=== PATIENT | female | born 1945 | race Caucasian/White ===

== ENCOUNTER 2016-12-19 01:31 | Emergency (ER) | payer MEDICARE, BC ==
[2016-12-19] MEDS ORDERED: ONDANSETRON HCL INJ/PF 4 MG/2 ML SDV IV ONE (02:06)
[2016-12-19] MEDS ORDERED: MORPHINE SULFATE 10 MG/ML INJ IV ONE ×2 (02:06→05:12)
[2016-12-19] MEDS ORDERED: KETOROLAC TROMETHAMINE INJ/PF 30 MG/1 ML SDV IV ONE (02:06)
--- NOTE | 2016-12-19 02:07 | ER Document Report ---
ED GI/ - General Chief Complaint: Flank Pain Stated Complaint: POSSIBLE GALLSTONES/FLANK PAIN Time Seen by Provider: 12/19/16 01:58 Mode of Arrival: Ambulatory Information source: Patient - HPI Patient complains to provider of: Dysuria, Flank pain, Vomiting Onset: Yesterday Timing/Duration: Sudden Quality of pain: Sharp, Stabbing Severity at maximum: Severe Severity in ED: Severe Location: Right flank Associated symptoms: Nausea, Vomiting Exacerbated by: Denies Relieved by: Denies Similar symptoms previously: Yes Recently seen / treated by doctor: Yes Notes: 12/19/16 07:36 Patient is a 71-year-old female who presents to the emergency room complaining of sharp stabbing right-sided flank pain that started yesterday, intermittently improved after passing what appeared to be a 3 mm stone, then this evening she developed similar symptoms again, she reports pressure in her bladder, nausea, no vomiting currently, no blood in her urine, no history of kidney stones previously, patient is visiting the area, does not currently have a urologist to follow-up with, she is currently taking Flomax, hydrocodone as needed and Zofran as needed at home with intermittent symptom relief - Related Data Allergies/Adverse Reactions: clindamycin Allergy (Verified 12/19/16 01:36) acetaminophen [From Percocet] Adverse Reaction (Verified 12/19/16 07:02) Nausea oxycodone [From Percocet] Adverse Reaction (Verified 12/19/16 07:02) Nausea Home Medications: Current Home Medications Lisinopril/Hydrochlorothiazide [Lisinopril-Hctz 10-12.5 mg Tab] 1 tab PO DAILY 12/19/16 [History] Past Medical History - General Information source: Patient - Social History Smoking Status: Never Smoker Family History: Reviewed & Not Pertinent Renal/ Medical History: Denies: Hx Peritoneal Dialysis Review of Systems - Review of Systems Constitutional: No symptoms reported EENT: No symptoms reported Cardiovascular: No symptoms reported Respiratory: No symptoms reported Gastrointestinal: See HPI Genitourinary: See HPI Female Genitourinary: No symptoms reported Musculoskeletal: No symptoms reported Skin: No symptoms reported Hematologic/Lymphatic: No symptoms reported Neurological/Psychological: No symptoms reported -: Yes All other systems reviewed and negative Physical Exam - Vital signs Vitals: Temp Pulse Resp BP Pulse Ox 98.6 F 106 H 22 H 174/85 H 97 12/19/16 01:37 12/19/16 01:37 12/19/16 01:37 12/19/16 01:37 12/19/16 01:37 Interpretation: Hypertensive, Tachycardic, Tachypneic - General General appearance: Alert In distress: Mild - Appears in pain - HEENT Head: Normocephalic, Atraumatic Eyes: Normal Conjunctiva: Normal Extraocular movements intact: Yes Eyelashes: Normal Pupils: PERRL Pharynx: Normal Neck: Normal - Respiratory Respiratory status: No respiratory distress Chest status: Nontender Breath sounds: Normal Chest palpation: Normal - Cardiovascular Rhythm: Regular Heart sounds: Normal auscultation Murmur: No - Abdominal Inspection: Normal Distension: No distension Bowel sounds: Normal Tenderness: Nontender Organomegaly: No organomegaly - Back Back: Normal, Nontender - Extremities General upper extremity: Normal inspection, Nontender, Normal color, Normal ROM , Normal temperature General lower extremity: Normal inspection, Nontender, Normal color, Normal ROM , Normal temperature, Normal weight bearing. No: Daniela's sign - Neurological Neuro grossly intact: Yes Cognition: Normal Orientation: AAOx4 Kathy Coma Scale Eye Opening: Spontaneous [place] Coma Scale Verbal: Oriented [place] Coma Scale Motor: Obeys Commands Kathy Coma Scale Total: 15 Speech: Normal Motor strength normal: LUE, RUE, LLE, RLE Sensory: Normal - Psychological Associated symptoms: Normal affect, Normal mood - Skin Skin Temperature: Warm Skin Moisture: Dry Skin Color: Normal Course - Re-evaluation Re-evalutation: 12/19/16 07:35 Patient has been resting comfortably, reports feeling much better, lab and imaging findings discussed with patient at bedside which are consistent with 4 mm stone in the right UVJ, other incidental findings were discussed with patient as well, she was advised to continue current treatment regimen that was prescribed by [facility] ER physician 2 days ago, which includes hydrocodone, Zofran ODT as needed, and Flomax, patient was also given a prescription for oral morphine for breakthrough pain that is not controlled by the Vicodin, advised to return if symptoms worsen or any additional concerns, patient and spouse at bedside acknowledge understanding and agreement with this plan 12/19/16 07:38 I did obtain patient's medical records from [facility] for her recent visit, CT scan results did show a 5 mm stone in the right kidney, with a 3 mm stone in the UVJ, patient's labs showed mild leukocytosis with a white count in the 11 range, and a creatinine of 1.61, her labs today were slightly worsening, however her vital signs are stable, her pain was relatively easy control with IV fluids and medications, the stone in the right UVJ today is 4 mm and patient should be able to pass his stone without any surgical procedure or intervention , patient was provided with copy of all these records - Vital Signs Vital signs: Temp Pulse Resp BP Pulse Ox 98.6 F 106 H 25 H 149/68 H 96 12/19/16 01:37 12/19/16 01:37 12/19/16 05:40 12/19/16 05:40 12/19/16 05:40 - Laboratory Result Diagrams: 12/19/16 02:21 12/19/16 02:21 Laboratory results interpreted by me: 12/19/16 12/19/16 02:21 02:21 WBC 13.1 H RBC 3.51 L Hgb 10.5 L Hct 32.2 L Seg Neutrophils % 78.5 H Lymphocytes % 12.8 L Absolute Neutrophils 10.3 H Carbon Dioxide 20 L BUN 36 H Creatinine 1.93 H Est GFR ( Amer) 31 L Est GFR (Non-Af Amer) 25 L Glucose 206 H Direct Bilirubin 0.5 H - Diagnostic Test Radiology reviewed: Image reviewed, Reports reviewed Discharge - Discharge Clinical Impression: Kidney stone on right side Condition: Stable Disposition: HOME, SELF-CARE Instructions: Kidney Stone ([facility]) Additional Instructions: Follow up with your primary care provider in one to 2 days. Return to the emergency room immediately if symptoms worsen or any additional concerns. Prescriptions: Morphine Sulfate [Morphine 10 mg/5 ml Oral Soln Udcup] 5 mg PO Q6 #10 udc
[2016-12-19 02:30] LABS: ABSOLUTE BASOPHILS # (AUTO) 0.1 10^3/uL (0.0-0.2); ABSOLUTE EOSINOPHILS # (AUTO) 0.1 10^3/uL (0.0-0.6); ABSOLUTE LYMPHOCYTES (AUTO) 1.7 10^3/uL (0.5-4.7); ABSOLUTE NEUT (AUTO) 10.3 10^3/uL (1.7-8.2); BASOPHILS % (AUTO) 0.4 % (0-2); HEMATOCRIT 32.2 % (36.0-47.0); HEMOGLOBIN 10.5 g/dL (12.0-15.5); HGB HCT DIFFERENCE -0.7; LYMPHOCYTES % (AUTO) 12.8 % (13-45); MEAN CORPUSCULAR HEMOGLOBIN 29.9 pg (27.0-33.4); MEAN CORPUSCULAR HGB CONC 32.6 g/dL (32.0-36.0); MEAN CORPUSCULAR VOLUME 92 fl (80-97); MONOCYTES % (AUTO) 7.3 % (3-13); RED BLOOD COUNT 3.51 10^6/uL (3.72-5.28); RED CELL DISTRIBUTION WIDTH 12.5 % (11.5-14.0); SEGMENTED NEUTROPHILS % (AUTO) 78.5 % (42-78); WHITE BLOOD COUNT 13.1 10^3/uL (4.0-10.5)
[2016-12-19] MEDS: NORMAL SALINE 1000 ML 1,000 ML IV PRN ×2 (02:37→05:38)
--- NOTE | 2016-12-19 02:45 | RADIOLOGY REPORT (SQ) ---
EXAM DESCRIPTION: CT LTD RENAL STONE PROTOCOL ON COMPLETED DATE/TIME: 12/19/2016 2:29 am REASON FOR STUDY: flank pain COMPARISON: None. TECHNIQUE: CT scan of the abdomen and pelvis performed without intravenous or oral contrast. Images reviewed with lung, soft tissue, and bone windows. Reconstructed coronal and sagittal MPR images revi ewed. All images stored on PACS. All CT scanners at this facility use dose modulation, iterative reconstruction, and/or weight based d osing when appropriate to reduce radiation dose to as low as reasonably achievable (ALARA). [facility]: Dose Right [facility]: CareDose [facility]: Dose Right [facility]: Teradose 4D [facility]: [employer] RADIATION DOSE: Up-to-date CT equipment and radiation dose reduction techniques were employed. CTDIv ol: 15.1 mGy. DLP: 774 mGy-cm.mGy. LIMITATIONS: None. FINDINGS: LOWER CHEST: No significant findings. No nodules or infiltrates. NON-CONTRASTED LIVER, SPLEEN, ADRENALS: Evaluation limited by lack of IV contrast. No identified sign ificant masses. PANCREAS: No masses. No peripancreatic inflammatory changes. GALLBLADDER: Surgically absent. RIGHT KIDNEY AND URETER: Large 7 cm peripelvic cyst versus marked proximal hydronephrosis secondary t o UPJ obstruction. No significant calcifications. Hydronephrosis versus large peripelvic cyst. LEFT KIDNEY AND URETER: Well circumscribed low density mass(es) statistically most likely to be cyst( s). Assessment limited by lack of iv contrast. No significant calcifications. No hydronephrosis o r hydroureter. AORTA AND RETROPERITONEUM: No aneurysm. No retroperitoneal masses or adenopathy. BOWEL AND PERITONEAL CAVITY: No obvious masses or inflammatory changes. No free fluid. APPENDIX: Normal. PELVIS, BLADDER, AND ABDOMINAL WALL:No abnormal masses. No free fluid. Bladder normal. BONES: No significant findings. OTHER: No other significant finding. IMPRESSION: Large peripelvic cyst versus proximal hydronephrosis with UPJ obstruction of the right k idney. No calcifications. TECHNICAL DOCUMENTATION: JOB ID: [id number] Quality ID # [id number]: Final reports with documentation of one or more dose reduction techniques (e.g., Au tomated exposure control, adjustment of the mA and/or kV according to patient size, use of iterative reconstruction technique) 2010 [employer]- All Rights Reserved
[2016-12-19 03:02] LABS: ALANINE AMINOTRANSFERASE 32 U/L (9-52); ALBUMIN 4.2 g/dL (3.5-5.0); ALKALINE PHOSPHATASE 113 U/L (38-126); ANION GAP 12 (5-19); ASPARTATE AMINO TRANSFERASE 22 U/L (14-36); BILIRUBIN,DIRECT 0.5 mg/dL (0.0-0.4); BILIRUBIN,TOTAL 0.8 mg/dL (0.2-1.3); BLOOD UREA NITROGEN 36 mg/dL (7-20); CALCIUM 9.7 mg/dL (8.4-10.2); CARBON DIOXIDE 20 mmol/L (22-30); CHLORIDE 107 mmol/L (98-107); CREATININE RESULT 1.93 mg/dL (0.52-1.25); GLUCOSE 206 mg/dL (75-110); LIPASE 261.5 U/L (23-300); TOTAL PROTEIN 7.3 g/dL (6.3-8.2)
[2016-12-19 04:06] LABS: APPEARANCE,URINE CLEAR; BILIRUBIN,URINE NEGATIVE (NEGATIVE); GLUCOSE, URINE NEGATIVE (NEGATIVE); KETONES,URINE NEGATIVE (NEGATIVE); LEUKOCYTE ESTERASE,URINE NEGATIVE (NEGATIVE); NITRITE,URINE NEGATIVE (NEGATIVE); PROTEIN,URINE NEGATIVE (NEGATIVE); URINE SPECIFIC GRAVITY 1.015; UROBILINOGEN,URINE NEGATIVE mg/dL (<2.0)
[2016-12-19] MEDS ORDERED: NORMAL SALINE 1000 ML 1,000 ML IV PRN (05:12)
--- NOTE | 2016-12-19 07:22 | RADIOLOGY REPORT (SQ) ---
EXAM DESCRIPTION: CT ABD/PELVIS WITH IV ONLY COMPLETED DATE/TIME: 12/19/2016 7:11 am REASON FOR STUDY: right flank pain COMPARISON: CT without contrast TECHNIQUE: CT scan of the abdomen and pelvis performed using helical scanning technique with dynamic intravenous contrast injection. No oral contrast. Images reviewed with lung, soft tissue, and bone windows. Reconstructed coronal and sagittal MPR images reviewed. Delayed images for evaluation of the urinary system also acquired. All images stored on PACS. All CT scanners at this facility use dose modulation, iterative reconstruction, and/or weight based d osing when appropriate to reduce radiation dose to as low as reasonably achievable (ALARA). [facility]: Dose Right [facility]: CareDose [facility]: Dose Right [facility]: Teradose 4D [facility]: [employer] CONTRAST TYPE AND DOSE: contrast/concentration: Isovue 300.00 mg/ml; Total Contrast Delivered: 96.0 ml; Total Saline Delivered: 71.0 ml RENAL FUNCTION: Creatinine 1.9. Discussed with referring physician. RADIATION DOSE: Up-to-date CT equipment and radiation dose reduction techniques were employed. CTDIv ol: 16.9 - 19.4 mGy. DLP: 1730 mGy-cm.. LIMITATIONS: None. FINDINGS: LOWER CHEST: No significant findings. No nodules or infiltrates. LIVER: Normal size. No masses. No dilated ducts. SPLEEN: Normal size. No focal lesions. PANCREAS: No masses. No significant calcifications. No adjacent inflammation or peripancreatic fluid collections. Pancreatic duct not dilated. GALLBLADDER: Surgically absent. ADRENAL GLANDS: No significant masses or asymmetry. RIGHT KIDNEY AND URETER: No solid masses. 4 mm calculus in the distal right ureter. Large peripel jeramy cysts. Drherxnl-[id number] hydronephrosis. No significant hydroureter despite the distal uretera l calculus. LEFT KIDNEY AND URETER: No solid masses. No significant calcifications. No hydronephrosis or hydr oureter. AORTA AND VESSELS: No aneurysm. No dissection. Renal arteries, SMA, celiac without stenosis. RETROPERITONEUM: No retroperitoneal adenopathy, hemorrhage or masses. BOWEL AND PERITONEAL CAVITY: No masses or inflammatory changes. No free fluid or peritoneal masses. APPENDIX: Normal. PELVIS: No mass. No free fluid. Normal bladder. ABDOMINAL WALL: No masses. No hernias. BONES: No significant or acute findings. OTHER: No other significant finding. IMPRESSION: 4 mm calculus in the distal right ureter without significant hydroureter however there i s [id number] hydronephrosis. In addition there is a large peripelvic cyst measuring 5.6 cm. TECHNICAL DOCUMENTATION: JOB ID: [id number] Quality ID # [id number]: Final reports with documentation of one or more dose reduction techniques (e.g., Au tomated exposure control, adjustment of the mA and/or kV according to patient size, use of iterative reconstruction technique) 2010 [employer]- All Rights Reserved
[2016-12-19 08:06] VITALS: BP 125/66
== END 2016-12-19 08:20 | disposition home or self-care (01) ==
LOC: ER 01:31
DX: N20.0 Calculus of kidney (principal); R10.9 Unspecified abdominal pain; R11.10 Vomiting, unspecified; R30.0 Dysuria; Z88.3 Allergy status to other anti-infective agents; Z88.6 Allergy status to analgesic agent
CPT/HCPCS: 96376; 99284; 96361; 96374; 96375; 36415; 87086; 83690; 85025; 80053; 81001; 76380; 74177; J1885; J2270; J2405; J7030

== ENCOUNTER 2016-12-20 09:57 | Emergency (ER) | payer MEDICARE, BC ==
[2016-12-20] MEDS ORDERED: NORMAL SALINE 1000 ML 1,000 ML IV ONE (10:25)
[2016-12-20] MEDS ORDERED: MORPHINE SULFATE 10 MG/ML INJ IV ONE ×3 (10:25→16:33)
[2016-12-20] MEDS ORDERED: ONDANSETRON HCL INJ/PF 4 MG/2 ML SDV IV ONE ×2 (10:25→16:33)
--- NOTE | 2016-12-20 10:28 | ER Document Report ---
ED Medical Screen (RME) - General Chief Complaint: Flank Pain Stated Complaint: ABDOMINAL PAIN Time Seen by Provider: 12/20/16 10:16 Mode of Arrival: Wheelchair TRAVEL OUTSIDE OF THE [place] IN LAST 30 DAYS: No - HPI Patient complains to provider of: R flank pain Onset: Other - pt with R kidney stone states oral meds not working -- wants IV meds so she can travel to [place] today - Related Data Allergies/Adverse Reactions: caffeine [From Cafergot] Allergy (Verified 12/20/16 10:01) clindamycin Allergy (Verified 12/20/16 10:01) ergotamine [From [employer]] Allergy (Verified 12/20/16 10:01) oxycodone [From Percocet] Adverse Reaction (Verified 12/20/16 10:01) Nausea Past Medical History - Social History Chew tobacco use (# tins/day): No Frequency of alcohol use: None Drug Abuse: None - Past Medical History Cardiac Medical History: Reports: Hx Hypertension Endocrine Medical History: Reports: Hx Diabetes Mellitus Type 2 Renal/ Medical History: Reports: Hx Kidney Stones. Denies: Hx Peritoneal Dialysis Musculoskeltal Medical History: Reports Hx Arthritis Past Surgical History: Reports: Hx Cholecystectomy, Hx Hysterectomy, Hx Orthopedic Surgery - Bilateral knees, RLE, bunion, Hx Tonsillectomy, Hx Urinary Tract Surgery - Bladder sling - Immunizations Hx Diphtheria, Pertussis, Tetanus Vaccination: No Physical Exam - Vital signs Vitals: Temp Pulse Resp BP Pulse Ox 99.3 F 112 H 20 183/74 H 99 12/20/16 10:03 12/20/16 10:03 12/20/16 10:03 12/20/16 10:03 12/20/16 10:03 Course - Vital Signs Vital signs: Temp Pulse Resp BP Pulse Ox 99.3 F 112 H 20 183/74 H 99 12/20/16 10:03 12/20/16 10:03 12/20/16 10:03 12/20/16 10:03 12/20/16 10:03
[2016-12-20 11:29] LABS: APPEARANCE,URINE CLEAR; BILIRUBIN,URINE NEGATIVE (NEGATIVE); GLUCOSE, URINE NEGATIVE (NEGATIVE); KETONES,URINE NEGATIVE (NEGATIVE); LEUKOCYTE ESTERASE,URINE NEGATIVE (NEGATIVE); NITRITE,URINE NEGATIVE (NEGATIVE); PROTEIN,URINE NEGATIVE (NEGATIVE); URINE SPECIFIC GRAVITY 1.017; UROBILINOGEN,URINE NEGATIVE mg/dL (<2.0)
--- NOTE | 2016-12-20 11:33 | ER Document Report ---
ED GI/ - General Chief Complaint: Flank Pain Stated Complaint: ABDOMINAL PAIN Time Seen by Provider: 12/20/16 10:16 Mode of Arrival: Wheelchair Notes: Patient is here because of continuing pain in the right lower quadrant of the abdomen and in the right flank region. Patient started having this pain Tuesday and was seen at [facility] in [place] and had a CT scan and the patient was told she had two kidney stones. She says that she passed 1 of the stones on Tuesday morning and then came here to visit her family. Her pain was so intense that she came here Tuesday night and had a noncontrasted CT and a CT with IV contrast showing a 4 mm stone in the right ureter with severe right hydronephrosis, but no significant hydroureter. Patient was discharged on pain medications, but returned saying that the liquid morphine she was prescribed is not helping her pain. Patient says she is nauseated although she is not vomiting. Has not noted any fever. Has never had kidney stones before although she has had kidney infections. TRAVEL OUTSIDE OF THE [place] IN LAST 30 DAYS: No - Related Data Allergies/Adverse Reactions: caffeine [From Cafergot] Allergy (Verified 12/20/16 10:01) clindamycin Allergy (Verified 12/20/16 10:01) ergotamine [From Cafergot] Allergy (Verified 12/20/16 10:01) oxycodone [From Percocet] Adverse Reaction (Verified 12/20/16 10:01) Nausea Past Medical History - Social History Smoking Status: Never Smoker Chew tobacco use (# tins/day): No Frequency of alcohol use: None Drug Abuse: None Family History: Reviewed & Not Pertinent - Past Medical History Cardiac Medical History: Reports: Hx Hypertension Endocrine Medical History: Reports: Hx Diabetes Mellitus Type 2 Renal/ Medical History: Reports: Hx Kidney Stones Musculoskeltal Medical History: Reports Hx Arthritis Past Surgical History: Reports: Hx Cholecystectomy, Hx Hysterectomy, Hx Orthopedic Surgery - Bilateral knees, RLE, bunion, Hx Tonsillectomy, Hx Urinary Tract Surgery - Bladder sling - Immunizations Hx Diphtheria, Pertussis, Tetanus Vaccination: No Review of Systems - Review of Systems Notes: REVIEW OF SYSTEMS: CONSTITUTIONAL : Denies fever. EENT: Denies eye, ear, nose or mouth or throat pain or other symptoms. CARDIOVASCULAR: Denies chest pain. RESPIRATORY: Denies cough, chest congestion, or shortness of breath. GASTROINTESTINAL: See HPI. GENITOURINARY: Denies difficulty or painful urinating, urinary frequency, blood in urine. See HPI. MUSCULOSKELETAL: Denies back or neck pain. Denies joint pain or swelling. SKIN: Denies rash or skin lesions. NEUROLOGICAL: Denies LOC or altered mental status. Denies headache. Denies sensory loss or motor deficits. ALL OTHER SYSTEMS REVIEWED AND NEGATIVE. Physical Exam - Vital signs Vitals: Temp Pulse Resp BP Pulse Ox 99.3 F 112 H 20 183/74 H 99 12/20/16 10:03 12/20/16 10:03 12/20/16 10:03 12/20/16 10:03 12/20/16 10:03 Interpretation: Hypertensive - Mild, Tachycardic - Mild - Notes Notes: PHYSICAL EXAMINATION: GENERAL: Well-appearing, in no acute distress. HEAD: Atraumatic, normocephalic. EYES: Pupils equal round and reactive to light, extraocular movements intact. ENT: oropharynx clear without exudates. Moist mucous membranes. NECK: Normal range of motion, supple. LUNGS: Breath sounds clear and equal bilaterally. HEART: Regular rate and rhythm without murmurs. ABDOMEN: Soft, but tender in the right lower quadrant and right flank regions. No actual guarding or rebound present. No bruits heard. No pulsatile masses felt. BACK: No tenderness throughout entire back. EXTREMITIES: Normal range of motion without pain. NEUROLOGICAL: Normal speech, normal gait. Normal sensory, motor, and reflex exams. Awake, alert, and oriented x3. Cranial nerves normal. SKIN: Warm, dry, no rashes. Course - Vital Signs Vital signs: Temp Pulse Resp BP Pulse Ox 99.3 F 112 H 20 183/74 H 99 12/20/16 10:03 12/20/16 10:03 12/20/16 10:03 12/20/16 10:03 12/20/16 10:03 - Laboratory Result Diagrams: 12/20/16 10:31 12/20/16 10:31 Laboratory results interpreted by me: 12/20/16 12/20/16 12/20/16 10:31 10:31 11:10 WBC 10.8 H RBC 3.64 L Hgb 11.0 L Hct 33.3 L Seg Neutrophils % 80.2 H Lymphocytes % 12.7 L Absolute Neutrophils 8.7 H Carbon Dioxide 21 L BUN 27 H Creatinine 1.75 H Est GFR ( Amer) 34 L Est GFR (Non-Af Amer) 28 L Glucose 173 H Direct Bilirubin 0.6 H AST 100 H ALT 156 H Alkaline Phosphatase 137 H Urine Blood MODERATE H Discharge - Discharge Clinical Impression: Ureteral calculi Condition: Stable Disposition: HOME, SELF-CARE Additional Instructions: KIDNEY STONE: You are passing or have passed a kidney stone. These stones are usually due to increased calcium or uric acid concentrations in your urine. Stones within the kidney itself are not painful. The pain occurs as the stone leaves the kidney to pass down the long tube, called the ureter, leading to the bladder. If the stone is small, it will usually pass by itself. Most patients can pass the stone at home. You will usually receive medications for pain, nausea or vomiting, and sometimes a medication to assist in passing the kidney stone. However, if the pain is very severe or if vomiting prevents you from taking oral pain medications, you may need to return for further treatment. Drink three or four quarts of fluids per day. You will be given pain medication (if needed) and urine strainers. Strain all your urine to see if the stone passes. If your doctor has asked you to bring the stone in for analysis, return with the stone once it has passed. Return if pain or vomiting become severe, if you develop a high fever, if you are unable to pass your urine, or if other unusual symptoms occur. PAIN MEDICATION INJECTION: You have received an injection of a pain medication. You should experience significant pain relief within 45 minutes. This drug is a narcotic - - it will impair your judgement, slow your reaction time and make you sleepy ( as well as relieve your pain). Narcotics also can cause nausea. You should not drive, work with machinery, or perform any task requiring mental alertness until all effects of the medication are gone -- six to eight hours. Do not take any alcohol, or sedatives, and do not take any other medication without checking with your physician. ANTINAUSEA MEDICATION: You have been given a medication to suppress nausea and vomiting. This type of medication can be given as a shot, pill, or suppository. It will usually last for many hours. Pills and shots usually last six to eight hours, suppositories last about 12 hours. For the typical illness, only one or two doses of the medication may be necessary. Mild lightheadedness may occur. This type of medicine can cause drowsiness. Do not drive or operate dangerous machinery while under its influence. Do not mix with alcohol. See your doctor at once if you have muscle spasms or tightness, or uncontrollable motions (particularly of the neck, mouth, or jaw). Persistent vomiting or severe lightheadedness should also be evaluated by the physician. ORAL NARCOTIC MEDICATION: You have been given a prescription for pain control. This medication is a narcotic. It's best taken with food, as nausea can result if taken on an empty stomach. Don't operate machinery or drive within six hours of taking this medication. Do not combine this medicine with alcohol, or with any medication which can cause sedation (such as cold tablets or sleeping pills) unless you get permission from the physician. Narcotics tend to cause constipation. If possible, drink plenty of fluids and eat a diet high in fiber and fruits. FOLLOW-UP CARE: If you have been referred to a physician for follow-up care, call the physician s office for an appointment as you were instructed or within the next two days. If you experience worsening or a significant change in your symptoms, notify the physician immediately or return to the Emergency Department at any time for re-evaluation. You have an appointment to see Dr. Garcia at 8:15 tomorrow morning, Tuesday, December 21, at 8:15 AM. His office is at [address] [place] [address]. [address]. Prescriptions: Hydrocodone/Acetaminophen [Dalhart 5-325 mg Tablet] 1 tab PO Q4HP PRN #15 tablet PRN Reason: Promethazine HCl [Phenergan 25 mg Tablet] 1 tab PO Q6H PRN #15 tablet PRN Reason:
[2016-12-20 11:49] LABS: ABSOLUTE LYMPHOCYTES (AUTO) 1.4 10^3/uL (0.5-4.7); ABSOLUTE MONOCYTES (AUTO) 0.7 10^3/uL (0.1-1.4); ABSOLUTE NEUT (AUTO) 8.7 10^3/uL (1.7-8.2); BASOPHILS % (AUTO) 0.4 % (0-2); EOSINOPHILS % (AUTO) 0.4 % (0-6); HEMATOCRIT 33.3 % (36.0-47.0); HGB HCT DIFFERENCE -0.3; LYMPHOCYTES % (AUTO) 12.7 % (13-45); MEAN CORPUSCULAR HEMOGLOBIN 30.1 pg (27.0-33.4); MEAN CORPUSCULAR VOLUME 92 fl (80-97); MONOCYTES % (AUTO) 6.3 % (3-13); RED BLOOD COUNT 3.64 10^6/uL (3.72-5.28); SEGMENTED NEUTROPHILS % (AUTO) 80.2 % (42-78); WHITE BLOOD COUNT 10.8 10^3/uL (4.0-10.5)
[2016-12-20 11:54] LABS: ALANINE AMINOTRANSFERASE 156 U/L (9-52); ALBUMIN 4.3 g/dL (3.5-5.0); ALKALINE PHOSPHATASE 137 U/L (38-126); ANION GAP 12 (5-19); ASPARTATE AMINO TRANSFERASE 100 U/L (14-36); BILIRUBIN,DIRECT 0.6 mg/dL (0.0-0.4); BILIRUBIN,TOTAL 1.2 mg/dL (0.2-1.3); BLOOD UREA NITROGEN 27 mg/dL (7-20); CALCIUM 9.9 mg/dL (8.4-10.2); CARBON DIOXIDE 21 mmol/L (22-30); CHLORIDE 104 mmol/L (98-107); CREATININE RESULT 1.75 mg/dL (0.52-1.25); GLUCOSE 173 mg/dL (75-110); POTASSIUM 4.9 mmol/L (3.6-5.0); SODIUM 137.3 mmol/L (137-145); TOTAL PROTEIN 7.8 g/dL (6.3-8.2)
--- NOTE | 2016-12-20 12:46 | RADIOLOGY REPORT (SQ) ---
EXAM DESCRIPTION: CT LTD RENAL STONE PROTOCOL ON COMPLETED DATE/TIME: 12/20/2016 12:07 pm REASON FOR STUDY: RLQ pain, here 2 days ago with stone/hydronephrosi COMPARISON: None. TECHNIQUE: CT scan of the abdomen and pelvis performed without intravenous or oral contrast. Images reviewed with lung, soft tissue, and bone windows. Reconstructed coronal and sagittal MPR images revi ewed. All images stored on PACS. All CT scanners at this facility use dose modulation, iterative reconstruction, and/or weight based d osing when appropriate to reduce radiation dose to as low as reasonably achievable (ALARA). [facility]: Dose Right [facility]: CareDose [facility]: Dose Right [facility]: Teradose 4D [facility]: Smart theRightAPI RADIATION DOSE: Up-to-date CT equipment and radiation dose reduction techniques were employed. CTDIv ol: 14.6 mGy. DLP: 760 mGy-cm.mGy. LIMITATIONS: 12/19/2016 None. FINDINGS: LOWER CHEST: No significant findings. No nodules or infiltrates. NON-CONTRASTED LIVER, SPLEEN, ADRENALS: Evaluation limited by lack of IV contrast. No identified sign ificant masses. PANCREAS: No masses. No peripancreatic inflammatory changes. GALLBLADDER: Surgically absent. RIGHT KIDNEY AND URETER: No suspicious solid masses. There is a large upper pole cyst. No intraren al calcifications are seen. There is mild hydronephrosis and hydroureter. There is perinephric str anding. The collecting system and ureter are somewhat hyper attenuating. On image 67 series 3 there is a 4 mm rounded opacity that appears to be in the ureter. A 3 mm opacity is suggested at the UVJ. LEFT KIDNEY AND URETER: No suspicious solid masses. A couple of cortical cysts are present. No sig nificant calcifications. No hydronephrosis or hydroureter. AORTA AND RETROPERITONEUM: No aneurysm. No retroperitoneal masses or adenopathy. BOWEL AND PERITONEAL CAVITY: No obvious masses or inflammatory changes. No free fluid. APPENDIX: There is mild stranding around the appendix, but this is felt to be related to the perineph marcella stranding rather than to of inflammatory changes in the appendix. PELVIS, BLADDER, AND ABDOMINAL WALL:There is a small amount of free fluid in the pelvis. The urinary bladder is normal. The uterus is absent. There is no adnexal mass or fluid collection. BONES: No significant findings. OTHER: No other significant finding. IMPRESSION: 1. There is a large upper pole cyst on the right kidney. 2. There is perinephric stranding. There is mild hydronephrosis and hydroureter. The urine is hype r attenuating, suggesting bleeding. There appear to be 2 stones in the distal ureter as described ab mack. However, the urine is so hyper attenuating it is difficult to be completely certain. 3. There is small amount of free fluid in the pelvis. TECHNICAL DOCUMENTATION: JOB ID: [id number] Quality ID # [id number]: Final reports with documentation of one or more dose reduction techniques (e.g., Au tomated exposure control, adjustment of the mA and/or kV according to patient size, use of iterative reconstruction technique) 2010 [employer]- All Rights Reserved
[2016-12-20 16:51] VITALS: BP 124/75
== END 2016-12-20 16:50 | disposition home or self-care (01) ==
LOC: ER 09:57
DX: N13.2 Hydronephrosis with renal and ureteral calculous obstruction (principal); Z88.3 Allergy status to other anti-infective agents; Z88.6 Allergy status to analgesic agent; Z88.8 Allergy status to other drugs, medicaments and biological substances; I10 Essential (primary) hypertension; E11.9 Type 2 diabetes mellitus without complications; Z87.442 Personal history of urinary calculi; M19.90 Unspecified osteoarthritis, unspecified site; Z90.49 Acquired absence of other specified parts of digestive tract; Z90.710 Acquired absence of both cervix and uterus
CPT/HCPCS: 96376; 99284; 96374; 96375; 36415; 87086; 85025; 80053; 81001; 76380; J2270; J2405; J7030